=== PATIENT | female | born 1975 | race African-American/Black ===

== ENCOUNTER 2017-07-26 01:18 | Emergency (ER) | payer OTHER ==
[~2017-07-26] VITALS: Ht 175.3 cm; Wt 95.3 kg
[~2017-07-26 01:18] MED LIST: ACETAMINOPHEN500 M3 ORAL; ATENOLOL100 MG ORAL; BACTRIM DS TAB1 EAC1 ORAL; BENAZEPRIL HCL40 MG ORAL; GUAIFENESIN-CO118 M1 ORAL; HYDROCODON-ACE1 EA16 ORAL
[2017-07-26] MEDS ORDERED: Mylanta II UD 30ml ORAL ONE (01:45)
[2017-07-26] MEDS ORDERED: Dicyclomine HCl 10mg/5ml oral soln ORAL ONE (01:45)
[2017-07-26] MEDS ORDERED: Lidocaine 2% Visc 15ml soln ORAL ONE (01:45)
[2017-07-26 02:00] LABS: BASOPHILS % (AUTO) 0.7 % (0.0-2.0); EOSINOPHILS % (AUTO) 3.8 % (0.0-3.0); LYMPHOCYTES % (AUTO) 26.5 % (20.0-45.0); MEAN CORPUSCULAR HEMOGLOBIN 28.5 PG (27.0-31.0); MEAN CORPUSCULAR HGB CONC 32.9 G/DL (32.0-36.0); MEAN CORPUSCULAR VOLUME 87 FL (80-99); MEAN PLATELET VOLUME 8.7 FL (6.5-10.1); MONOCYTES % (AUTO) 6.2 % (1.0-10.0); NEUTROPHILS % (AUTO) 62.8 % (45.0-75.0); PLATELET COUNT 324 K/UL (150-450); RED BLOOD COUNT 4.42 M/UL (4.20-5.40); WHITE BLOOD COUNT 8.5 K/UL (4.8-10.8)
[2017-07-26 02:01] LABS: APPEARANCE,URINE CLEAR; KETONES,URINE NEGATIVE (NEGATIVE); LEUKOCYTE ESTERASE ,URINE NEGATIVE (NEGATIVE); NITRITE,URINE NEGATIVE (NEGATIVE); PH,URINE 5 (4.5-8.0); PROTEIN,URINE 4+ (NEGATIVE); UROBILINOGEN,URINE NORMAL MG/DL (0.0-1.0)
[2017-07-26 02:08] VITALS: BP 179/111
[2017-07-26 02:22] LABS: RBC,URINE 0-2 /HPF (0 - 2); SQUAMOUS EPITHELIAL CELL,UR MODERATE /LPF (NONE/OCC); WBC,URINE 0-2 /HPF (0 - 2)
[2017-07-26 02:23] LABS: ALANINE AMINOTRANSFERASE 18 U/L (12-78); ALBUMIN/GLOBULIN RATIO 0.3 (1.0-2.7); ANION GAP 13 (5-15); ASPARTATE AMINO TRANSFERASE 14 U/L (15-37); BACTERIA,URINE FEW /HPF; CALCIUM 8.5 MG/DL (8.5-10.1); CARBON DIOXIDE 22 MMOL/L (21-32); CHLORIDE 118 MMOL/L (98-107); CREATININE 2.6 MG/DL (0.55-1.30); GLOMERULAR FILTRATION RATE 24.2 mL/min (>60); LIPASE 113 U/L (73-393); POTASSIUM 4.3 MMOL/L (3.5-5.1); SODIUM 153 MMOL/L (136-145); TOTAL PROTEIN 7.9 G/DL (6.4-8.2)
--- NOTE | 2017-07-26 03:34 | Emergency Room Report ---
History of Present Illness General Chief Complaint: Abdominal Pain Source: Patient Present Illness HPI 42-year-old female presents ED for evaluation. Patient states that she's been having cramping abdominal pain with diarrhea since Monday after eating seafood. Patient states pain as cramping, 8/10, nonradiating. Denies fevers or chills. Denies chest pain or shortness of breath. Denies vomiting. Denies recent antibiotic use. Denies recent travel. Other aggravating relieving factors. Denies any other associated symptoms Allergies: Coded Allergies: PENICILLINS (Verified Allergy, Mild, 10/12/11) Patient History Past Medical History: HTN Pertinent Family History: none Social History: Denies: smoking, alcohol use, drug use Last Menstrual Period: Jul Now: No Immunizations: UTD Reviewed Nursing Documentation: PMH: Agreed, PSxH: Agreed Nursing Documentation-PMH Hx Hypertension: Yes Review of Systems All Other Systems: negative except mentioned in HPI Physical Exam Vital Signs Date Time Temp Pulse Resp B/P (MAP) Pulse Ox O2 Delivery O2 Flow Rate FiO2 07/26/17 01:19 99.7 81 16 173/108 97 Room Air Sp02 EP Interpretation: reviewed, normal General Appearance: no apparent distress, alert, GCS 15, non-toxic Head: normocephalic, atraumatic Eyes: bilateral eye normal inspection, bilateral eye PERRL ENT: hearing grossly normal, normal pharynx, no angioedema, normal voice Neck: full range of motion, supple/symm/no masses Respiratory: chest non-tender, lungs clear, normal breath sounds, speaking full sentences Cardiovascular #1: regular rate, rhythm, no edema Cardiovascular #2: 2+ carotid (R), 2+ carotid (L), 2+ radial (R), 2+ radial (L) , 2+ dorsalis pedis (R), 2+ dorsalis pedis (L) Gastrointestinal: normal bowel sounds, non tender, soft, non-distended, no guarding, no rebound Rectal: deferred Genitourinary: normal inspection, no CVA tenderness Musculoskeletal: back normal, gait/station normal, normal range of motion, non- tender Neurologic: alert, oriented x3, responsive, motor strength/tone normal, sensory intact, speech normal Psychiatric: judgement/insight normal, memory normal, mood/affect normal, no suicidal/homicidal ideation Reflexes: 3+ bicep (R), 3+ bicep (L), 3+ tricep (R), 3+ tricep (L), 3+ knee (R) , 3+ knee (L) Skin: normal color, no rash, warm/dry, well hydrated Lymphatic: no adenopathy Medical Decision Making Diagnostic Impression: Primary Impression: Gastroenteritis Additional Impression: Acute on chronic renal insufficiency ER Course Hospital Course 42-year-old F presents to ED with cramping abdominal pain with diarrhea differential diagnosis: gastritis, SBO, cholecystits, gastroenteritis Clinical course Patient placed on stretcher. On nurse monitoring. After initial history and physical I ordered labs, IV fluids, Zofran and pepcid and GI cocktail Labs - no leukocytosis, Na 153, Cr 2.6, LFTs normal, UA unremarkable I discussed findings with the patient. Patient is aware of having kidney problems. Did not know her baseline numbers. Last creatinine here in 2016 was 1.8. Possible acute on chronic kidney failure secondary to dehydration However patient states she does feel better. I discussed options for admission for IV hydration. Patient states she wants to be discharged to followup with her PMD. I will give patient copies of her labs I feel this is a highly complex case requiring extensive working including EKG/ Rhythm strip, Xray/CT/US, Blood/urine lab work, repeat exams while in ED, and administration of strong opiates/narcotics for pain control, admission to hospital or close patient follow up. Diagnosis - gastroenteritis, acute on chronic renal insufficiency Stable and discharged to home with prescriptions for Zantac, bentyl, simethicone. Followup with PMD. Return to ED if symptoms recur or worsen Labs Test 07/26/17 01:50 White Blood Count 8.5 K/UL (4.8-10.8) Red Blood Count 4.42 M/UL (4.20-5.40) Hemoglobin 12.6 G/DL (12.0-16.0) Hematocrit 38.2 % (37.0-47.0) Mean Corpuscular Volume 87 FL (80-99) Mean Corpuscular Hemoglobin 28.5 PG (27.0-31.0) Mean Corpuscular Hemoglobin Concent 32.9 G/DL (32.0-36.0) Red Cell Distribution Width 15.0 % (11.6-14.8) Platelet Count 324 K/UL (150-450) Mean Platelet Volume 8.7 FL (6.5-10.1) Neutrophils (%) (Auto) 62.8 % (45.0-75.0) Lymphocytes (%) (Auto) 26.5 % (20.0-45.0) Monocytes (%) (Auto) 6.2 % (1.0-10.0) Eosinophils (%) (Auto) 3.8 % (0.0-3.0) Basophils (%) (Auto) 0.7 % (0.0-2.0) Urine Color Pale yellow Urine Appearance Clear Urine pH 5 (4.5-8.0) Urine Specific [place] 1.015 (1.005-1.035) Urine Protein 4+ (NEGATIVE) Urine Glucose (UA) Negative (NEGATIVE) Urine Ketones Negative (NEGATIVE) Urine Occult Blood 1+ (NEGATIVE) Urine Nitrite Negative (NEGATIVE) Urine Bilirubin Negative (NEGATIVE) Urine Urobilinogen Normal MG/DL (0.0-1.0) Urine Leukocyte Esterase Negative (NEGATIVE) Urine RBC 0-2 /HPF (0 - 2) Urine WBC 0-2 /HPF (0 - 2) Urine Squamous Epithelial Cells Moderate /LPF (NONE/OCC) Urine Bacteria Few /HPF (NONE) Urine HCG, Qualitative Negative Sodium Level 153 MMOL/L (136-145) Potassium Level 4.3 MMOL/L (3.5-5.1) Chloride Level 118 MMOL/L (98-107) Carbon Dioxide Level 22 MMOL/L (21-32) Anion Gap 13 (5-15) Blood Urea Nitrogen 18 mg/dL (7-18) Creatinine 2.6 MG/DL (0.55-1.30) Estimat Glomerular Filtration Rate 24.2 mL/min (>60) Glucose Level 103 MG/DL (74-106) Calcium Level 8.5 MG/DL (8.5-10.1) Total Bilirubin 0.4 MG/DL (0.2-1.0) Aspartate Amino Transf (AST/SGOT) 14 U/L (15-37) Alanine Aminotransferase (ALT/SGPT) 18 U/L (12-78) Alkaline Phosphatase 81 U/L (46-116) Total Protein 7.9 G/DL (6.4-8.2) Albumin 2.0 G/DL (3.4-5.0) Globulin 5.9 g/dL Albumin/Globulin Ratio 0.3 (1.0-2.7) Lipase 113 U/L (73-393) Last Vital Signs Date Time Temp Pulse Resp B/P (MAP) Pulse Ox O2 Delivery O2 Flow Rate FiO2 07/26/17 02:08 99.7 73 16 179/111 97 Room Air Status: improved Disposition: HOME, SELF-CARE Condition: Stable Scripts Ranitidine Hcl* (ZANTAC*) 150 Mg Tablet 150 MG ORAL TWICE A DAY, #30 TAB Prov: GIANNI MONTERROSO M.D. 07/26/17 Simethicone* (SIMETHICONE*) 80 Mg Tab.chew 80 MG ORAL Q8H Y for GAS PAIN, #20 TAB 0 Refills Prov: GIANNI MONTERROSO M.D. 07/26/17 Dicyclomine Hcl* (BENTYL*) 10 Mg Capsule 10 MG ORAL FOUR TIMES A DAY, #20 CAP Prov: GIANNI MONTERROSO M.D. 07/26/17 Atenolol* (TENORMIN*) 100 Mg Tablet 100 MG ORAL DAILY, #30 TAB Prov: GIANNI MONTERROSO M.D. 07/26/17 Benazepril Hcl* (BENAZEPRIL HCL*) 40 Mg Tablet 40 MG ORAL TWICE A DAY for 30 Days, TAB Prov: GIANNI MONTERROSO M.D. 07/26/17 Referrals: NON PHYSICIAN (PCP) GIANNI MONTERROSO M.D. Jul 26, 2017 03:34
[2017-07-26] MEDS ORDERED: BENTYL10 MG ORAL (03:42)
[2017-07-26] MEDS ORDERED: RANITIDINE HCL150 MG ORAL (03:42)
[2017-07-26] MEDS ORDERED: BENAZEPRIL HCL40 MG ORAL (03:42)
[2017-07-26] MEDS ORDERED: SIMETHICONE80 MG ORAL (03:42)
[2017-07-26] MEDS ORDERED: ATENOLOL100 MG ORAL (03:42)
[2017-07-26 03:50] VITALS: BP 179/111
[2017-07-27] MEDS ORDERED: IBUPROFEN600 MG ORAL (20:53)
[2017-07-27] MEDS ORDERED: PHENAZOPYRIDIN200 MG ORAL (20:53)
== END 2017-07-26 03:56 | disposition home or self-care (01) ==
LOC: EMR 01:57
DX: R10.9 Unspecified abdominal pain (principal); R19.7 Diarrhea, unspecified; Z88.0 Allergy status to penicillin; I10 Essential (primary) hypertension; K52.9 Noninfective gastroenteritis and colitis, unspecified; N28.9 Disorder of kidney and ureter, unspecified
CPT/HCPCS: 36415; 80053; 81003; 81025; 83690; 85025; 96361; 96374; 96375; 99284; J2405; S0028

== ENCOUNTER 2017-07-27 18:24 | Emergency (ER) | payer OTHER ==
[~2017-07-27] VITALS: Ht 175.3 cm; Wt 95.3 kg
[~2017-07-27 18:24] MED LIST changes: +BENTYL10 MG ORAL; +RANITIDINE HCL150 MG ORAL; +SIMETHICONE80 MG ORAL
[2017-07-27 20:19] LABS: APPEARANCE,URINE CLEAR; KETONES,URINE NEGATIVE (NEGATIVE); LEUKOCYTE ESTERASE ,URINE NEGATIVE (NEGATIVE); NITRITE,URINE NEGATIVE (NEGATIVE); PH,URINE 5 (4.5-8.0); PROTEIN,URINE 3+ (NEGATIVE); UROBILINOGEN,URINE NORMAL MG/DL (0.0-1.0)
[2017-07-27 20:28] LABS: BACTERIA,URINE FEW /HPF; RBC,URINE 0-2 /HPF (0 - 2); SQUAMOUS EPITHELIAL CELL,UR FEW /LPF (NONE/OCC); WBC,URINE 0-2 /HPF (0 - 2)
[2017-07-27] MEDS: Phenazopyridine 200mg tab ORAL ONE (20:49)
--- NOTE | 2017-07-27 20:52 | Emergency Room Report ---
History of Present Illness General Chief Complaint: Abdominal Pain Source: Patient, Medical Record Present Illness HPI 42-year-old female presents emergency department complaining of in addition in severity dysuria, and urgency. Denies N/V/ fevers, chills, low back pain, hematuria, vaginal discharge, itching, skin lesions, swollen tender lymph nodes denies rash. denies abdominal tenderness. Denies . Allergies: Coded Allergies: PENICILLINS (Verified Allergy, Mild, 10/12/11) Patient History Past Medical History: see triage record Past Surgical History: none Last Menstrual Period: 07/18/17 Immunizations: UTD Reviewed Nursing Documentation: PMH: Agreed, PSxH: Agreed Nursing Documentation-PMH Past Medical History: No History, Except For Hx Hypertension: Yes Review of Systems All Other Systems: negative except mentioned in HPI Physical Exam Vital Signs Date Time Temp Pulse Resp B/P (MAP) Pulse Ox O2 Delivery O2 Flow Rate FiO2 07/27/17 18:44 99.3 80 16 172/99 99 Room Air Sp02 EP Interpretation: reviewed, normal General Appearance: no apparent distress, alert, GCS 15, non-toxic Head: normocephalic, atraumatic Eyes: bilateral eye normal inspection, bilateral eye PERRL ENT: hearing grossly normal, normal voice Neck: full range of motion Respiratory: lungs clear, normal breath sounds, speaking full sentences Cardiovascular #1: regular rate, rhythm Gastrointestinal: normal bowel sounds, non tender, soft, no guarding, no rebound Rectal: deferred Genitourinary: normal inspection, no CVA tenderness Musculoskeletal: back normal, gait/station normal, normal range of motion, non- tender Neurologic: alert, oriented x3, responsive, motor strength/tone normal, sensory intact, speech normal Psychiatric: mood/affect normal Skin: normal color, no rash, warm/dry, well hydrated Lymphatic: no adenopathy Medical Decision Making PA Attestation Dr. Brandt is my supervising Physician whom patient management has been discussed with. Diagnostic Impression: Primary Impression: Dysuria ER Course 42-year-old female presents emergency department complaining of in addition in severity dysuria, and urgency. Denies N/V/ fevers, chills, low back pain, hematuria, vaginal discharge, itching, skin lesions, swollen tender lymph nodes denies rash. denies abdominal tenderness. Denies . Ddx considered but are not limited to UTi , Pyelo, STI, Stone, Cystitis Vital signs: are WNL, pt. is afebrile H&PE are most consistent with UTI ORDERS: - UA labs are attached : unremarkable no infection, possible contamination - Urine HCG: negative --Pt just finished cycle. ED INTERVENTIONS: -Pyridium PO DISCHARGE: At this time pt. is stable for d/c to home. Will provide printed patient care instructions, and any necessary prescriptions. Care plan and follow up instructions have been discussed with the patient prior to discharge. Last Vital Signs Date Time Temp Pulse Resp B/P (MAP) Pulse Ox O2 Delivery O2 Flow Rate FiO2 07/27/17 18:44 99.3 80 16 172/99 99 Room Air Disposition: HOME, SELF-CARE Condition: Stable Scripts Ibuprofen* (MOTRIN*) 600 Mg Tablet 600 MG ORAL THREE TIMES A DAY, #30 TAB 0 Refills Prov: Shira Mack 07/27/17 Phenazopyridine Hcl* (PYRIDIUM*) 200 Mg Tablet 200 MG ORAL THREE TIMES A DAY for 3 Days, #9 TAB 0 Refills Prov: Shira Mack 07/27/17 Referrals: NON PHYSICIAN (PCP) Patient Instructions: Dysuria Additional Instructions: Take medications as directed. Follow up with a Primary Care Provider in 3-5 days, even if your symptoms have resolved. --Please review list of primary care clinics, if you do not already have a primary care provider Return sooner to ED if new symptoms occur, or current symptoms become worse. Pyridium will cause your urine to change color (Red/[place]), this is a normal side effect of the medication. - Please note that this Emergency Department Report was dictated using [employer] was[employer] technology software, occasionally this can lead to erroneous entry secondary to interpretation by the dictation equipment. Shira Mack Jul 27, 2017 20:52
[2017-07-27] MEDS ORDERED: PHENAZOPYRIDIN200 MG ORAL (20:53)
[2017-07-27] MEDS ORDERED: IBUPROFEN600 MG ORAL (20:53)
[2017-07-27 20:59] VITALS: BP 135/88
== END 2017-07-27 21:05 | disposition home or self-care (01) ==
LOC: EMR 20:01
DX: R30.0 Dysuria (principal); R39.15 Urgency of urination; I10 Essential (primary) hypertension; Z88.0 Allergy status to penicillin
CPT/HCPCS: 81003; 81025; 99283

== ENCOUNTER 2018-05-23 19:55 | Emergency (ER) | payer OTHER ==
[~2018-05-23] VITALS: Ht 175.3 cm; Wt 95.3 kg
[~2018-05-23 19:55] MED LIST changes: +IBUPROFEN600 MG ORAL; +PHENAZOPYRIDIN200 MG ORAL
[2018-05-23] MEDS ORDERED: ATORVASTATIN CA20 MG ORAL (20:06)
[2018-05-23] MEDS ORDERED: CALCIFEDIOL PO (20:06)
[2018-05-23] MEDS ORDERED: FUROSEMIDE20 M1 ORAL (20:06)
[2018-05-23] MEDS ORDERED: ADALAT20 MG ORAL (20:06)
[2018-05-23 20:29] VITALS: BP 166/99
[2018-05-23 20:30] VITALS: BP 166/99
--- NOTE | 2018-05-23 20:32 | Emergency Room Report ---
History of Present Illness General Chief Complaint: Palpitations Source: Patient Present Illness HPI The patient denies any dizziness or lightheadedness during palpitations. She states that she been having borderline thyroid function in the past. She states she has an appointment to see her primary care physician for reexamination the next few days. She was noted to have the no current complaint of pain. She reports having some mild upper after symptoms. Palpitations lasted for no more than a few seconds at a time. Patient denied any dizziness or lightheadedness during episodes. She states she's been taking her blood pressure medications which include atenolol as well as nifedipine extended release. The patient also takes Lasix. The she denies any chest discomfort. She denies taking contraceptives.The patient denies any current leg pain or swelling. Allergies: Coded Allergies: PENICILLINS (Verified Allergy, Mild, 05/23/18) Patient History Past Medical History: see triage record Last Menstrual Period: 05/16/18 Now: No Reviewed Nursing Documentation: PMH: Agreed; PSxH: Agreed Nursing Documentation-PMH Hx Hypertension: Yes Hx Dialysis: No - end stage renal disease Review of Systems All Other Systems: negative except mentioned in HPI Physical Exam Vital Signs Date Time Temp Pulse Resp B/P (MAP) Pulse Ox O2 Delivery O2 Flow Rate FiO2 05/23/18 19:59 99.9 83 16 160/105 96 99.9 General Appearance: well appearing, no apparent distress, alert, GCS 15 Head: normocephalic, atraumatic ENT: hearing grossly normal, normal voice Neck: full range of motion, supple Respiratory: no respiratory distress, speaking full sentences Cardiovascular #1: normal inspection, regular rate, rhythm, no edema Gastrointestinal: normal inspection, normal bowel sounds, non tender, soft Musculoskeletal: normal inspection, back normal, no calf tenderness Neurologic: normal inspection, alert, oriented x3, responsive, steak tenderizer machine III-XII nml as tested, motor strength/tone normal, normal gait Psychiatric: mood/affect normal Skin: no rash Medical Decision Making Diagnostic Impression: Primary Impression: Palpitations ER Course Patient presented for palpitations. The differential diagnosis included was not limited to arrhythmia, thyroid storm, sepsis, anemia, myocardial infarction , alcohol withdrawal, stimulant abuse, caffeine overdose among others. Patient has a benign exam and does not appear to require any further imaging or laboratory testing at this time. The EKG interpreted by me showed normal sinus rhythm with a rate of [address] or T wave changes. There is noted be some T-wave flattening. This is likely due to patient's diuretic use. The patient was advised increased oral potassium intake. The patient is advised to recheck with her primary care physician. The patient is advised to discontinue her Lasix and where self daily. Last Vital Signs Date Time Temp Pulse Resp B/P (MAP) Pulse Ox O2 Delivery O2 Flow Rate FiO2 05/23/18 19:59 99.9 83 16 160/105 96 99.9 Status: improved Disposition: HOME, SELF-CARE Condition: Stable Patient Instructions: Palpitations, [id number] Derek Rodarte MD May 23, 2018 20:32
== END 2018-05-23 20:30 | disposition home or self-care (01) ==
LOC: EMR 20:20
DX: R00.2 Palpitations (principal); I12.0 Hypertensive chronic kidney disease with stage 5 chronic kidney disease or end stage renal disease; N18.6 End stage renal disease
CPT/HCPCS: 99283

== ENCOUNTER 2018-12-02 01:52 | Emergency (ER) | payer OTHER ==
[~2018-12-02] VITALS: Ht 177.8 cm; Wt 104.3 kg
[~2018-12-02 01:52] MED LIST changes: +ADALAT20 MG ORAL; +ATORVASTATIN CA20 MG ORAL; +CALCIFEDIOL PO; +FUROSEMIDE20 M1 ORAL
[2018-12-02 02:15] VITALS: BP 197/107
--- NOTE | 2018-12-02 02:15 | NUR ---
ER Nurse Note: Pt came from home c/o high BP and that she is out of medication since 11/30/2018. Pt a&ox4, VSS, no signs of distress. Pt stated she is slightly dizzy but no blurry vison, full strength in all extremities, cap refill <3 secs. ERMD at pt side; will continue to monitor.
[2018-12-02] MEDS ORDERED: NIFEDIPINE ER60 M2 ORAL (02:47)
[2018-12-02] MEDS ORDERED: ATENOLOL100 MG ORAL (02:47)
[2018-12-02 02:55] VITALS: BP 170/82
--- NOTE | 2018-12-02 02:55 | NUR ---
ER Nurse Note: Pt seen, treated, medically cleared for discharge by ERMD. Discharge instructions and prescriptions given with repeat verbalization by pt. Instructed pt to follow up [facility] primary care physican within one week. Pt a&ox4, VSS, no signs of distress. ID band removed. Pt left with all belongings, left with steady gait via own transporation.
--- NOTE | 2018-12-02 03:42 | Emergency Room Report ---
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 any chest pain or shortness of breath Denies any headache denies any neck pain or photophobia Denies any other medical complaints Patient reports that she has taken her atenolol today however has not been able to take nifedipine for several days Allergies: Coded Allergies: PENICILLINS (Verified Allergy, Mild, 05/23/18) Patient History Past Medical History: see triage record Pertinent Family History: none Last Menstrual Period: 11/16/18 Now: No : 0 Para: 0 Reviewed Nursing Documentation: PMH: Agreed; PSxH: Agreed Nursing Documentation-PMH Hx Hypertension: Yes Hx Dialysis: No - end stage renal disease Review of Systems All Other Systems: negative except mentioned in HPI Physical Exam Vital Signs Date Time Temp Pulse Resp B/P (MAP) Pulse Ox O2 Delivery O2 Flow Rate FiO2 12/02/18 02:04 98.4 89 18 197/107 97 Room Air Sp02 EP Interpretation: reviewed, normal General Appearance: well appearing, no apparent distress Head: normocephalic, atraumatic Eyes: bilateral eye PERRL, bilateral eye EOMI ENT: hearing grossly normal, normal pharynx, TMs + canals normal, uvula midline Neck: full range of motion, supple, no meningismus, no bony tend Respiratory: lungs clear, normal breath sounds, no rhonchi, no respiratory distress, no retraction, no accessory muscle use Cardiovascular #1: normal peripheral pulses, regular rate, rhythm, no edema, no gallop, no JVD, no murmur Gastrointestinal: normal bowel sounds, non tender, soft, no mass, no organomegaly, non-distended, no guarding, no hernia, no pulsatile mass, no rebound Genitourinary: no CVA tenderness Musculoskeletal: normal inspection Neurologic: oriented x3, responsive, district scout executive III-XII nml as tested, motor strength/ tone normal, sensory intact Psychiatric: mood/affect normal Skin: normal color, no rash, warm/dry, palpation normal Lymphatic: normal inspection, no adenopathy Medical Decision Making Diagnostic Impression: Primary Impression: Hypertension ER Course Patient presents otherwise fairly asymptomatic Has a benign medical evaluation Remains hemodynamically stable on the cardiac monitoring Patient was provided with her nifedipine And is stable for close outpatient follow-up Rhythm Strip Diag. Results EP Interpretation: yes Rate: 80 Rhythm: NSR, no PVC's, no ectopy Last Vital Signs Date Time Temp Pulse Resp B/P (MAP) Pulse Ox O2 Delivery O2 Flow Rate FiO2 12/02/18 02:31 70 180/106 12/02/18 02:04 98.4 18 97 Room Air Status: improved Disposition: HOME, SELF-CARE Condition: Improved Scripts Atenolol* (TENORMIN*) 100 Mg Tablet 100 MG ORAL DAILY, #30 TAB Prov: Katt Self DO 12/02/18 Nifedipine* (NIFEDIPINE ER*) 60 Mg Tablet.er 60 MG ORAL DAILY, #20 TAB Prov: Katt Self DO 12/02/18 Referrals: [facility] (PCP) Patient Instructions: Hypertension, [id number], Managing Your High Blood Pressure Additional Instructions: Patient is provided with the discharge instructions notified to follow up with primary doctor in the next 2-3 days otherwise return to the er with any worsening symptoms. Please note that this report is being documented using [employer] technology. This can lead to erroneous entry secondary to incorrect interpretation by the dictating instrument. Katt Self DO Dec 02, 2018 03:42
== END 2018-12-02 02:55 | disposition home or self-care (01) ==
LOC: EMR 02:30
DX: I12.0 Hypertensive chronic kidney disease with stage 5 chronic kidney disease or end stage renal disease (principal); N18.6 End stage renal disease; Z99.2 Dependence on renal dialysis; Z88.0 Allergy status to penicillin
CPT/HCPCS: 99282

== ENCOUNTER 2019-07-26 19:03 | Emergency (ER) | payer OTHER ==
[~2019-07-26] VITALS: Ht 175.3 cm; Wt 104.3 kg
[~2019-07-26 19:03] MED LIST changes: +NIFEDIPINE ER60 M2 ORAL
--- NOTE | 2019-07-26 19:15 | NUR ---
ED Nurse Note: Patient in FT await review complaining of right ear pain for 4 days has noted clear discharge.
--- NOTE | 2019-07-26 19:18 | NUR ---
ED Nurse Note: Patient also states she has fullness in the sinuses and has a history of allergies.
[2019-07-26 19:23] VITALS: BP 159/98
--- NOTE | 2019-07-26 19:39 | Emergency Room Report ---
History of Present Illness General Chief Complaint: Earache Source: Medical Record Present Illness HPI 44 YO female presents to the ED c/o in severity pain, muffled hearing and d/c from the right ear x 2 days. Pt. denies q-Tip use. She denies fevers, chills, ST, or swollen tender lymph nodes. PT. denies neck pain /stiffness. She reports nasal congestion x 1 week with sneezing. No other aggravating or relieving factors at this time. Allergies: Coded Allergies: PENICILLINS (Verified Allergy, Mild, 05/23/18) Patient History Past Medical History: see triage record Past Surgical History: none Pertinent Family History: none Last Menstrual Period: 07/17/19 Now: No Reviewed Nursing Documentation: PMH: Agreed; PSxH: Agreed Nursing Documentation-PMH Past Medical History: No History, Except For Hx Hypertension: Yes Hx Dialysis: No - end stage renal disease Review of Systems All Other Systems: negative except mentioned in HPI Physical Exam Vital Signs Date Time Temp Pulse Resp B/P (MAP) Pulse Ox O2 Delivery O2 Flow Rate FiO2 07/26/19 19:09 98.8 93 18 175/101 (125) 97 Room Air Sp02 EP Interpretation: reviewed, normal General Appearance: no apparent distress, alert, GCS 15, non-toxic Head: normocephalic, atraumatic Eyes: bilateral eye normal inspection, bilateral eye PERRL ENT: hearing grossly normal, normal voice, other - white d/c, canal swelling, and external right ear tenderness, The right TM is intact. The left canal and TM are WNL Neck: full range of motion Respiratory: chest non-tender, lungs clear, normal breath sounds, speaking full sentences Cardiovascular #1: regular rate, rhythm Musculoskeletal: gait/station normal, normal range of motion, non-tender Neurologic: alert, oriented x3, responsive, motor strength/tone normal, sensory intact, speech normal, grossly normal Psychiatric: judgement/insight normal Lymphatic: no adenopathy Medical Decision Making PA Attestation Dr. Dorman is my supervising Physician whom patient management has been discussed with. Diagnostic Impression: Primary Impression: Otitis externa of right ear Qualified Codes: H60.501 - Unspecified acute noninfective otitis externa, right ear ER Course 44 YO female presents to the ED c/o in severity pain, muffled hearing and d/c from the right ear x 2 days. Pt. denies q-Tip use. She denies fevers, chills, ST, or swollen tender lymph nodes. PT. denies neck pain /stiffness. She reports nasal congestion x 1 week with sneezing. No other aggravating or relieving factors at this time. Ddx considered but are not limited to OM, OE, mastoiditis, TM perforation, FB, shingles just to name a few. Vital signs: are WNL, pt. is afebrile H&PE are most consistent with otitis Externa of the right ear canal. ORDERS: none required at this time, the diagnosis is clinical ED INTERVENTIONS: None required at this time. DISCHARGE: At this time pt. is stable for d/c to home. With otic ABX. Will provide printed patient care instructions, and any necessary prescriptions. Care plan and follow up instructions have been discussed with the patient prior to discharge. Last Vital Signs Date Time Temp Pulse Resp B/P (MAP) Pulse Ox O2 Delivery O2 Flow Rate FiO2 07/26/19 19:23 98.4 89 16 159/98 98 Room Air Disposition: HOME, SELF-CARE Condition: Stable Scripts Ofloxacin (OCUFLOX) 5 Ml Drops 7 DROP OP QID for 5 Days, #5 ML Prov: Shira Mack 07/26/19 Patient Instructions: Otitis Externa, [id number] Additional Instructions: Take medications as directed. Follow up with a Primary Care Provider in 3-5 days, even if your symptoms have resolved. --Please review list of primary care clinics, if you do not already have a primary care provider Return sooner to ED if new symptoms occur, or current symptoms become worse. - Please note that this Emergency Department Report was dictated using [employer] architect technology software, occasionally this can lead to erroneous entry secondary to interpretation by the dictation equipment. Shira Mack Jul 26, 2019 19:39
[2019-07-26] MEDS ORDERED: OCUFLOX5 ML OP (19:40)
[2019-07-26 20:00] VITALS: BP 149/88
--- NOTE | 2019-07-26 20:00 | NUR ---
ER DISCHARGE NOTE: Patient is cleared to be discharged per ERMD, pt is aox4, on room air, with stable vital signs. pt was given dc and prescription instructions, pt was able to verbalize understanding, pt id band removed. pt is able to ambulate with steady gait. pt took all belongings.
[2019-07-30] MEDS ORDERED: ZITHROMAX250 MG ORAL (02:10)
[2019-07-30] MEDS ORDERED: FLUCONAZOLE100 MG ORAL (02:10)
== END 2019-07-26 20:00 | disposition home or self-care (01) ==
LOC: EMR 19:35
DX: H60.501 Unspecified acute noninfective otitis externa, right ear (principal); Z88.0 Allergy status to penicillin; I12.0 Hypertensive chronic kidney disease with stage 5 chronic kidney disease or end stage renal disease; N18.6 End stage renal disease
CPT/HCPCS: 99282

== ENCOUNTER 2019-09-06 20:56 | Emergency (ER) | payer OTHER ==
[~2019-09-06] VITALS: Ht 175.3 cm; Wt 99.8 kg
[~2019-09-06 20:56] MED LIST changes: +FLUCONAZOLE100 MG ORAL; +OCUFLOX5 ML OP; +ZITHROMAX250 MG ORAL
[2019-09-06 21:09] VITALS: BP 188/120
--- NOTE | 2019-09-06 21:11 | NUR ---
ED Nurse Note: Patient walked into ER c/o right earache x 1 day. AAO x 4, VSS at this time.
[2019-09-06 21:25] VITALS: BP 185/104
--- NOTE | 2019-09-06 21:26 | NUR ---
ED Nurse Note: Patient's BP 185/104, ER MD aware.
[2019-09-06] MEDS ORDERED: ZITHROMAX250 MG ORAL (21:28)
[2019-09-06] MEDS ORDERED: CLOTRIMAZOLE30 ML TP (21:28)
--- NOTE | 2019-09-06 21:28 | Emergency Room Report ---
History of Present Illness General Chief Complaint: Earache Source: Patient Present Illness HPI This is a 44-year-old female with history of high blood pressure. She presents with complaint of right ear pain and drainage. This is a chronic problem since July. She was seen here and diagnosed with otitis externa patient was prescribed Ciprodex. It is not helping. She is waiting for authorization to see your specialist. Patient has some mild pain. Decreased hearing. She is been using the antibiotic drops without much relief. Denies any other complaint. Allergies: Coded Allergies: PENICILLINS (Verified Allergy, Mild, 05/23/18) Patient History Past Medical History: see triage record, old chart reviewed Past Surgical History: none Pertinent Family History: none Social History: Denies: smoking Last Menstrual Period: 07/16/19 Now: No : 4 Para: 2 Immunizations: other Reviewed Nursing Documentation: PMH: Agreed; PSxH: Agreed Nursing Documentation-PMH Past Medical History: No History, Except For Hx Cardiac Problems: No Hx Hypertension: Yes Hx Pacemaker: No Hx Asthma: No Hx COPD: No Hx Diabetes: No Hx Cancer: No Hx Gastrointestinal Problems: No Hx Dialysis: No - RENAL DISEASE History Of Psychiatric Problem: No Hx Neurological Problems: No Hx Cerebrovascular Accident: No Hx Seizures: No Review of Systems Eye: Denies: eye pain, blurred vision ENT: Reports: ear pain; Denies: nose congestion, throat swelling Respiratory: Denies: cough, shortness of breath Cardiovascular: Denies: chest pain, palpitations Gastrointestinal: Denies: abdominal pain, diarrhea, nausea, vomiting Musculoskeletal: Denies: back pain, joint pain Skin: Denies: rash Neurological: Denies: headache, numbness Endocrine: Denies: increased thirst, increased urine Hematologic/Lymphatic: Denies: easy bruising All Other Systems: negative except mentioned in HPI Physical Exam Vital Signs Date Time Temp Pulse Resp B/P (MAP) Pulse Ox O2 Delivery O2 Flow Rate FiO2 09/06/19 20:59 98.4 97 20 188/120 (142) 99 Room Air Vitals with high blood pressure Sp02 EP Interpretation: reviewed, normal General Appearance: well appearing, no apparent distress, alert Head: normocephalic, atraumatic Eyes: bilateral eye PERRL, bilateral eye EOMI ENT: hearing grossly normal, normal pharynx, other - Right ear: Canals show mild edema with cerumen. Neck: full range of motion, supple, no meningismus Respiratory: chest non-tender, lungs clear, normal breath sounds Cardiovascular #1: regular rate, rhythm, no murmur Gastrointestinal: normal bowel sounds, non tender, no mass, no organomegaly, no bruit, non-distended Musculoskeletal: back normal, normal range of motion, gait/station normal Psychiatric: mood/affect normal Procedures Additional Procedure Procedure Narrative Procedure: Cerumen disimpaction Indication: Cerumen impaction Description: Using an 18-gauge angiocatheter, I irrigated the ear with normal saline. Moderate amount of wet whitish wax removed. On reexamination no trauma. There is fluids and contraction of the TM. Mildly erythematous. Patient tolerated procedure without any problem. Medical Decision Making Diagnostic Impression: Primary Impression: Right otitis externa Qualified Codes: H60.61 - Unspecified chronic otitis externa, right ear Additional Impressions: Right otitis media with effusion Hypertension Qualified Codes: I10 - Essential (primary) hypertension ER Course Patient with a chronic right otitis externa. No relief with antibiotic drops. This may be fungal in nature. She now has otitis media. We will put on antibiotics. Blood pressure is elevated. Repeat is better. Will discharge home. Told patient take her blood pressure medication. Last Vital Signs Date Time Temp Pulse Resp B/P (MAP) Pulse Ox O2 Delivery O2 Flow Rate FiO2 09/06/19 21:09 98.4 20 188/120 99 Room Air 09/06/19 20:59 97 Status: improved Disposition: HOME, SELF-CARE Condition: Stable Scripts Clotrimazole (CLOTRIMAZOLE) 30 Ml Solution 30 ML TP TID, #30 ML Prov: Lionel Yu MD 09/06/19 Azithromycin* (ZITHROMAX*) 250 Mg Tablet 250 MG ORAL DAILY, #6 TAB 0 Refills Take two tables once daily for 1 day, then one tablet once daily for 4 days. Prov: Lionel Yu MD 09/06/19 Patient Instructions: Otitis Externa, [id number] Additional Instructions: Follow-up with your doctor in a week. Take your blood pressure medication. You will need a referral to see an learning and development intern. Return if worse. Lionel Yu MD Sep 06, 2019 21:28
[2019-09-06 21:39] VITALS: BP 185/104
--- NOTE | 2019-09-06 21:39 | NUR ---
ED Nurse Note: Pt cleared by health care Provider for discharge. DC instructions/prescription was given and explained to pt and verbalized understanding of teachings. All medical deviecs such as ID band removed. Pt is AAO x4, ambulatory and left with all personal belongings.
== END 2019-09-06 21:39 | disposition home or self-care (01) ==
LOC: EMR 21:30
DX: H61.21 Impacted cerumen, right ear (principal); H60.91 Unspecified otitis externa, right ear; H65.91 Unspecified nonsuppurative otitis media, right ear; I10 Essential (primary) hypertension; Z88.0 Allergy status to penicillin
CPT/HCPCS: 69209; Z7502; 99282

== ENCOUNTER 2020-08-09 19:43 | Emergency (ER) | payer OTHER ==
[~2020-08-09] VITALS: Ht 157.5 cm; Wt 72.6 kg
[~2020-08-09 19:43] MED LIST changes: +CLOTRIMAZOLE30 ML TP
[2020-08-09 20:14] VITALS: BP 205/118
[2020-08-09] MEDS ORDERED: Ketorolac 30mg Inj IV ONE (20:15)
[2020-08-09 20:30] VITALS: BP 166/104
--- NOTE | 2020-08-09 20:41 | Emergency Room Report ---
History of Present Illness General Chief Complaint: Hypertension Source: Patient Present Illness HPI Patient's main complaint is right heel pain. However in triage her blood pressure was elevated. She states she has not taken her blood pressure medication today. The pain in her heel has been for 4 days. She complains of 6/10 pain. She took 800 mg of Motrin before without help. Denies any trauma. She denies any fevers. There is no change in the skin. She has not had pain like this before. When labs came back the patient admits that she has renal dysfunction and sees a kidney specialist. She does not recall what her creatinine is been in the past. Patient denies exposure to Covid positive contacts. No fevers, sore throat, chest pain, palpitations, nausea, vomiting, diarrhea, dysuria, abdominal pain, shortness of breath, depression, anxiety, visual changes, dizziness, headache. Allergies: Coded Allergies: PENICILLINS (Verified Allergy, Mild, 05/23/18) COVID-19 Screening Contact w/high risk pt: No Experienced COVID-19 symptoms?: No COVID-19 Testing performed SSIS ARCHITECT: No Patient History Past Medical History: see triage record Social History: Denies: smoking Social History Narrative Caregiver Reviewed Nursing Documentation: PMH: Agreed; PSxH: Agreed Nursing Documentation-PMH Hx Cardiac Problems: No Hx Hypertension: Yes Hx Pacemaker: No Hx Asthma: No Hx COPD: No Hx Diabetes: No Hx Cancer: No Hx Gastrointestinal Problems: No Hx Dialysis: No - RENAL DISEASE Hx Neurological Problems: No Hx Cerebrovascular Accident: No Hx Seizures: No Review of Systems All Other Systems: negative except mentioned in HPI Physical Exam Vital Signs Date Time Temp Pulse Resp B/P (MAP) Pulse Ox O2 Delivery O2 Flow Rate FiO2 08/09/20 19:47 99.0 71 18 118/64 (82) 99 08/09/20 20:14 Room Air Sp02 EP Interpretation: reviewed, normal General Appearance: well appearing, no apparent distress, GCS 15 Head: normocephalic Eyes: bilateral eye normal inspection, bilateral eye PERRL, bilateral eye other - Slight exophthalmos ENT: moist mucus membranes Neck: supple Respiratory: lungs clear, normal breath sounds Cardiovascular #1: regular rate, rhythm Cardiovascular #2: 2+ radial (R) Gastrointestinal: normal inspection, normal bowel sounds, non tender, no mass, non-distended Musculoskeletal: back normal, normal range of motion, gait/station normal, tender - Right ankle and heel Neurologic: alert, oriented x3, grossly normal Psychiatric: mood/affect normal Skin: no rash, warm/dry Medical Decision Making Diagnostic Impression: Primary Impression: Hypertension Qualified Codes: I10 - Essential (primary) hypertension Additional Impressions: Pain of right heel Gout Qualified Codes: 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 Differential in cludes bone spur, sprain, strain, gout, osteoarthritis amongst others. In addition the patient has blood pressure that is extremely high. Evaluation with EKG, chest x-ray and labs. Patient treated with Toradol. In addition she will give be given doses of her usual blood pressure medication at this time. Patient placed on a radiation monitor. EKG no injury. Chest x-ray normal. Foot x-ray without abnormality. Labs significant for renal insufficiency and elevated uric acid. Patient given a dose of colchicine. Blood pressure improved. Discussed with patient findings and treatment plan. Discussed need for follow- up with her renal doctor. Discussed the etiology of the possible gout at this time. Patient stable for outpatient observation and treatment. Laboratory Tests Test 08/09/20 20:12 White Blood Count 10.0 K/UL (4.8-10.8) Red Blood Count 4.67 M/UL (4.20-5.40) Hemoglobin 14.0 G/DL (12.0-16.0) Hematocrit 42.7 % (37.0-47.0) Mean Corpuscular Volume 91 FL (80-99) Mean Corpuscular Hemoglobin 29.9 PG (27.0-31.0) Mean Corpuscular Hemoglobin Concent 32.7 G/DL (32.0-36.0) Red Cell Distribution Width 15.6 % (11.6-14.8) H Platelet Count 285 K/UL (150-450) Mean Platelet Volume 9.3 FL (6.5-10.1) Neutrophils (%) (Auto) 62.6 % (45.0-75.0) Lymphocytes (%) (Auto) 26.4 % (20.0-45.0) Monocytes (%) (Auto) 5.6 % (1.0-10.0) Eosinophils (%) (Auto) 4.1 % (0.0-3.0) H Basophils (%) (Auto) 1.2 % (0.0-2.0) Erythrocyte Sedimentation Rate 17 MM/HR (0-20) Urine Color Pale yellow Urine Appearance Slightly cloudy Urine pH 6 (4.5-8.0) Urine Specific [place] 1.005 (1.005-1.035) Urine Protein 3+ (NEGATIVE) H Urine Glucose (UA) Negative (NEGATIVE) Urine Ketones Negative (NEGATIVE) Urine Blood 2+ (NEGATIVE) H Urine Nitrite Negative (NEGATIVE) Urine Bilirubin Negative (NEGATIVE) Urine Urobilinogen Normal MG/DL (0.0-1.0) Urine Leukocyte Esterase Negative (NEGATIVE) Urine RBC 5-10 /HPF (0 - 2) H Urine WBC 0-2 /HPF (0 - 2) Urine Squamous Epithelial Cells Many /LPF (NONE/OCC) H Urine Bacteria Few /HPF (NONE) Urine HCG, Qualitative Negative (NEGATIVE) Sodium Level 139 MMOL/L (136-145) Potassium Level 3.5 MMOL/L (3.5-5.1) Chloride Level 106 MMOL/L (98-107) Carbon Dioxide Level 22 MMOL/L (21-32) Anion Gap 11 mmol/L (5-15) Blood Urea Nitrogen 32 mg/dL (7-18) H Creatinine 2.6 MG/DL (0.55-1.30) H Estimated Glomerular Filtration Rate 23.9 mL/min (>60) Glucose Level 112 MG/DL (74-106) H Uric Acid 8.8 MG/DL (2.6-7.2) H Calcium Level 8.6 MG/DL (8.5-10.1) Total Bilirubin 0.3 MG/DL (0.2-1.0) Aspartate Amino Transferase (AST) 20 U/L (15-37) Alanine Aminotransferase (ALT) 17 U/L (12-78) Alkaline Phosphatase 102 U/L (46-116) Total Creatine Kinase 209 U/L (26-308) Troponin I 0.000 ng/mL (0.000-0.056) Pro-B-Type Natriuretic Peptide 381 pg/mL (0-125) H Total Protein 8.4 G/DL (6.4-8.2) H Albumin 3.6 G/DL (3.4-5.0) Globulin 4.8 g/dL Albumin/Globulin Ratio 0.8 (1.0-2.7) L EKG Diagnostic Results Rate: normal Rhythm: NSR ST Segments: no acute changes Rhythm Strip Diag. Results EP Interpretation: yes Rhythm: NSR, no PVC's, no ectopy Chest X-Ray Diagnostic Results Chest X-Ray Diagnostic Results : Chest X-Ray Ordered: Yes # of Views/Limited/Complete: 1 View Indication: Other EP Interpretation: Yes Interpretation: no consolidation, no effusion, no pneumothorax Impression: No acute disease Electronically Signed by: Electronically signed by Michael Lopes MD Other X-Ray Diagnostic Results Other X-Ray Diagnostic Results : X-Ray ordered: Right foot # of Views/Limited Vs Complete: 4 View Indication: Pain Interpretation: no dislocation, no soft tissue swelling, no fractures Impression: No acute disease Electronically Signed by: Electronically signed by Michael Lopes MD Last Vital Signs Date Time Temp Pulse Resp B/P (MAP) Pulse Ox O2 Delivery O2 Flow Rate FiO2 08/09/20 22:00 98.3 70 18 157/105 99 Room Air Status: improved Disposition: HOME, SELF-CARE Condition: Improved Scripts Colchicine (COLCRYS) 0.6 Mg Tablet 0.6 MG PO Q8HR PRN for joint pain, #20 TAB Prov: Michael Lopes MD 08/09/20 Hydrocodone Bit/Acetaminophen 5-325* (NORCO 5-325 TABLET*) 1 Each Tablet 1 TAB ORAL Q6H PRN for FOR PAIN, #10 TAB 0 Refills Prov: Michael Lopes MD 08/09/20 Referrals: NON PHYSICIAN (PCP) Michael Lopes MD Aug 09, 2020 20:41
[2020-08-09 20:55] LABS: APPEARANCE,URINE SLIGHTLY CLOUDY; BILIRUBIN, URINE NEGATIVE (NEGATIVE); COLOR,URINE PALE YELLOW; GLUCOSE, URINE (UA) NEGATIVE (NEGATIVE); KETONES,URINE NEGATIVE (NEGATIVE); LEUKOCYTE ESTERASE ,URINE NEGATIVE (NEGATIVE); NITRITE,URINE NEGATIVE (NEGATIVE); PH,URINE 6 (4.5-8.0); PROTEIN,URINE 3+ (NEGATIVE); UROBILINOGEN,URINE NORMAL MG/DL (0.0-1.0)
[2020-08-09 20:56] LABS: BASOPHILS % (AUTO) 1.2 % (0.0-2.0); EOSINOPHILS % (AUTO) 4.1 % (0.0-3.0); HEMATOCRIT 42.7 % (37.0-47.0); LYMPHOCYTES % (AUTO) 26.4 % (20.0-45.0); MEAN CORPUSCULAR VOLUME 91 FL (80-99); MONOCYTES % (AUTO) 5.6 % (1.0-10.0); NEUTROPHILS % (AUTO) 62.6 % (45.0-75.0); PLATELET COUNT 285 K/UL (150-450); RED BLOOD COUNT 4.67 M/UL (4.20-5.40); RED CELL DISTRIBUTION WIDTH 15.6 % (11.6-14.8)
[2020-08-09 21:22] LABS: ANION GAP 11 mmol/L (5-15); BLOOD UREA NITROGEN 32 mg/dL (7-18); CALCIUM 8.6 MG/DL (8.5-10.1); CARBON DIOXIDE 22 MMOL/L (21-32); CHLORIDE 106 MMOL/L (98-107); CREATININE 2.6 MG/DL (0.55-1.30); POTASSIUM 3.5 MMOL/L (3.5-5.1); SODIUM 139 MMOL/L (136-145)
--- NOTE | 2020-08-09 21:28 | Diagnostic Imaging Report ---
EXAM: XR Chest, 1 View CLINICAL HISTORY: PAIN TECHNIQUE: Frontal view of the chest. COMPARISON: 07/22/16 FINDINGS: Negative for significant cardiac enlargement. Negative for focal consolidation, pneumothorax or significant pleural fluid collections.
--- NOTE | 2020-08-09 21:30 | Diagnostic Imaging Report ---
EXAM: XR Right Foot Complete, 3 or More Views CLINICAL HISTORY: PAIN TECHNIQUE: Frontal, lateral and oblique views of the right foot. COMPARISON: No relevant prior studies available. FINDINGS: No acute radiographic findings.
[2020-08-09 21:33] LABS: ALANINE AMINOTRANSFERASE 17 U/L (12-78); ALBUMIN 3.6 G/DL (3.4-5.0); ALBUMIN/GLOBULIN RATIO 0.8 (1.0-2.7); ALKALINE PHOSPHATASE 102 U/L (46-116); ASPARTATE AMINO TRANSFERASE 20 U/L (15-37); BILIRUBIN,TOTAL 0.3 MG/DL (0.2-1.0); CREATINE KINASE 209 U/L (26-308)
[2020-08-09 21:50] VITALS: BP 158/102
[2020-08-09] MEDS ORDERED: NORCO 5-325 TA1 EAC1 ORAL (21:50)
[2020-08-09] MEDS ORDERED: COLCRYS0.6 M1 PO (21:50)
[2020-08-09 22:00] VITALS: BP 157/105
== END 2020-08-09 22:00 | disposition home or self-care (01) ==
LOC: EMR 20:09
DX: M79.671 Pain in right foot (principal); I10 Essential (primary) hypertension; M10.271 Drug-induced gout, right ankle and foot; N28.9 Disorder of kidney and ureter, unspecified; Z88.0 Allergy status to penicillin
CPT/HCPCS: 36415; 71045; 73620; 80053; 81003; 81025; 82550; 83880; 84484; 84550; 85025; 85651; 93005; 96374; J1885; Z7502; 99284